=== PATIENT | male | born 1980 | race African-American/Black ===

== ENCOUNTER 2025-08-23 17:24 | Emergency (ER) | payer MEDICAID, SELFPAY ==
--- OUTSIDE RECORDS SUMMARY | 2025-06-04 05:20 | XMS_ITS ---
Author Organization [facility] Address [address] [place] [address] Care Team Providers Care Assembler Crimper Name Role Phone Ana Llanos Primary Care Provider REASON FOR VISIT r/s from 04/30/25 4 week fu Social History Sex Assigned At : Social History Observation Description Sex Assigned At Male Encounters Encounter Location Date Provider Diagnosis [facility] [address], [place] [address] 06/04/2025 Ana Llanos Plan Of Treatment No Information Progress Notes * Randal HERNANDEZDOB: [birth year] (45 yo M)Acc No.[id number]:06/04/2025 UNLOCKED PROGRESS NOTE Patient: Randal VICENTE Provider: ARYAN Begum, EDUCATION FACULTY MEMBER, PMHNP-BC :1980 A ge:44 Y S ex:Male Date:06/04/2025 [facility] [facility] Structured Data:Is there a n shannan you would prefer we call you? (Nombre que prefiere usar) : No Subjective: * Chief Complaints: * 1 . R/s from 04/30/25 4 week fu. * Medical History: Objective: * Vitals: Assessment: Plan: * Treatment: * * Electronic signature of Acacia Llanos on 08/23/2025 at 08:25 PM SWITCH INSPECTOR Sign off status: Pending * Provider: Chrissy Llanos, MSN, EDUCATION FACULTY MEMBER, PMHNP-BC Date: 0 06/04/2025 Generated for Printing/Faxing/eTransmitting on: 1 10/23/2024 08:25 PM SWITCH INSPECTOR
--- OUTSIDE RECORDS SUMMARY | 2025-06-14 09:00 | XMS_ITS ---
Author Organization [facility] Address [address] [place] [address] Care Team Providers Care Equipment Records Supervisor Name Role Phone Ana Llanos Primary Care Provider Larry Calvo Unavailable [phone] REASON FOR VISIT 2 Week F/U Medications Medication SIG (Take, Route, Frequency, Duration) Notes Start Date End Date Status hydrOXYzine Pamoate 50 MG 1 capsule Orally 3 times a day; Duration: 30 days As needed for anxiety/insomnia Active traZODone HCl 50 MG 1 tablet at bedtime as needed Orally Once a day; Duration: 30 days Active Vivitrol 380 MG as directed Intramus cular every 28 days; Duration: 28 days 02/28/2025 Active Multi Vitamin - 1 tablet Orally Once a day; Duration: 30 days 05/21/2025 Active Melatonin 5 MG 1 tablet at bedtime as needed Orally Once a day; Duration: 30 days 05/21/2025 Active OLANZapine 10 MG 1 tablet at bedtime Orally Once a day; Duration: 30 days Active OLANZapine 5 MG 1 tablet in morning Orally Once a day; Duration: 30 days Active hydrOXYzine Pamoate 25 mg TAKE 1 CAPSULE BY MOUTH EVERY FOUR HOURS NEEDED FOR ANXIETY; Duration: 8 Active Docusate Sodium 100 MG 1 capsule as need ed Orally Once a day; Duration: 30 day(s) 05/31/2025 Active Cyclobenzaprine HCl 5 MG 1 tablet at bed time as needed Orally Once a day; Duration: 30 day(s) 05/31/2025 Active Social History Sex Assigned At : Social History Observation Description Sex Assigned At Male Encounters Encounter Location Date Provider Diagnosis [facility] [place] [address] 06/14/2025 Larry Calvo Plan Of Treatment No Information Progress Notes * Randal HERNANDEZDOB: [birth year] (45 yo M)Acc No.[id number]:06/14/2025 UNLOCKED PROGRESS NOTE Progress Notes Patient: Randal VICENTE Provider: Sadaf Calvo APN :1980 A ge:44 Y S ex:Male Date:06/14/2025 Address:[address] [place] [address] , [facility] Pcp:Ana Llanos Structured Data:Is there a n shannan you would prefer we call you? (Nombre que prefiere usar) : No Subjective: * Chief Complaints: * 1 . 2 Week F/U. * Medical History: * Medications: T aking Vivitrol 380 MG Suspension Reconstituted as directed Intramuscular every 28 days , Taking Multi Vitamin - Tablet 1 tablet Orally Once a day , Taking Melatonin 5 MG Tablet 1 tablet at bedtime as needed Orally Once a day , Taking hydrOXYzine Pamoate 25 mg Capsule TAKE 1 CAPSULE BY MOUTH EVERY FOUR HOURS NEEDED FOR ANXIETY , Taking Docusate Sodium 100 MG Capsule 1 capsule as needed Orally Once a day , Taking Cyclobenzaprine HCl 5 MG Tablet 1 tablet at bedtime as needed Orally Once a day , Taking OLANZapine 10 MG Tablet 1 tablet at bedtime Orally Once a day , Taking OLANZapine 5 MG Tablet 1 tablet in morning Orally Once a day , Taking hydrOXYzine Pamoate 50 MG Capsule 1 capsule Orally 3 times a day As needed for anxiety/insomnia, Taking traZODone HCl 50 MG Tablet 1 tablet at bedtime as needed Orally Once a day Objective: * Vitals: Assessment: Plan: * Treatment: * * Electronic signature of Alejandro Calvo on 08/23/2025 at 08:25 PM RETREAD TECHNICIAN Sign off status: Pending * Provider: Sadaf Calvo APN Date: 0 06/14/2025 Generated for Issac magana/Nimisha/Kelsi on: 10/23/2024 08:25 PM RETREAD TECHNICIAN
--- OUTSIDE RECORDS SUMMARY | 2025-06-27 09:40 | XMS_ITS ---
[facility] Organization [facility] Address [address] [place] [address] Care Team Providers Care Health Manager Name Role Phone Ana Llanos Primary Care Provider Sandie Vora [phone] REASON FOR VISIT wants vivitrol inj Social History Sex Assigned At : Social History Observation Description Sex Assigned At Male Encounters Encounter Location Date Provider Diagnosis [facility] [place] [address] 06/27/2025 Sandie Vora Plan Of Treatment No Information Progress Notes * Randal HERNANDEZDOB: [birth year] (45 yo M)Acc No.[id number]:06/27/2025 UNLOCKED PROGRESS NOTE Patient: Randal VICENTE Provider: Mehul Vora, MSN, POULTRY HATCHERY MAN, HEALTH ADVISOR-C :1980 A ge:44 Y S ex:Male Date:06/27/2025 Address[facility] [address] Pcp:Ana Llanos Structured Data:Is there a n shannan you would prefer we call you? (Nombre que prefiere usar) : No Subjective: * Chief Complaints: * 1 . Wants vivitrol inj. * Medical History: Objective: * Vitals: Assessment: Plan: * Treatment: * Care Plan Details* * Electronic signature of Mar Vora APRN, [id number] on 08/23/2025 at 08:26 PM YOUTH ACCOMMODATION SUPPORT WORKER Sign off status: Pending * Provider: Mehul Vora, MSN, POULTRY HATCHERY MAN, HEALTH ADVISOR-C Date: 1 Generated for Issac magana/Nimisha/Kelsi on: 10/23/2024 08:26 PM YOUTH ACCOMMODATION SUPPORT WORKER
[2025-08-23 17:31] VITALS: BP 126/89; PULSE 99; RESP 14; TEMP 36.8; O2SAT 100
--- NOTE | 2025-08-23 17:33 | ED_ITS ---
HPI - Alcohol General Chief Complaint: Alcohol <Jyoti Brambila APRN - Last Filed: 08/23/25 17:35> Stated Complaint: N/V <Jyoti Brambila APRN - Last Filed: 08/23/25 17:35> Time Seen by Provider: 08/23/25 17:33 <Jyoti Brambila APRN - Last Filed: 08/23/25 17:35> Focused HPI: Patient is a 45-year-old male who presents to the ER stating the police told me I could either come here or go to halfway.He reports he has been drinking alcohol today but is unsure what time he had his last drink. Patient reports he DOES NOT drink alcohol every day. He denies any loss of consciousness, headache, visual changes, shortness of breath or nausea/vomiting. Patient denies any medical history relevant to this ER visit. GENERAL: Ill-appearing, well-nourished, and in no acute distress. HEAD: Normocephalic, atraumatic. CHEST: Clear to auscultation. ?No respiratory distress. HEART: Regular rate and rhythm.? NEURO: ?Alert and oriented x3. Patient screened in triage and initial orders placed.? ?Additional care and disposition to be based upon?diagnostic testing and treatment. <Jyoti Brambila APRN - Last Filed: 08/23/25 17:35> History of Present Illness HPI narrative: Agree with HPI <Winnie Cesar MD - Last Filed: 08/23/25 20:24> Related Data Allergies/Adverse Reactions: Allergies Allergy/AdvReac Type Severity Reaction Status Date / Time No Known Allergies Allergy Verified 08/23/25 17:26 <Jyoti Brambila APRN - Last Filed: 08/23/25 17:35> Exam Narrative: EXAMINATION OF ORGAN SYSTEMS/BODY AREAS: Constitutional: Vital signs per nursing GENERAL:[No acute distress, does appear slightly intoxicated] HEAD: Normal with no signs of head trauma. EYES: EOMI, conjunctiva normal ENT: Hearing grossly intact LUNGS: Nonlabored breathing. HEART: [Regular rate and rhythm] ABD: [Soft], [nontender to palpation] EXT: Normal range of motion SKIN: [No rashes or lesions.] NEURO: [Alert and oriented x 3. Able to ambulate with steady gait.] PSYCH: Normal affect <Winnie Cesar MD - Last Filed: 08/23/25 20:24> Course Vital Signs Vital signs: Vital Signs Temperature 98.2 F 08/23/25 17:31 Pulse Rate 99 08/23/25 17:31 Respiratory Rate 14 08/23/25 17:31 Blood Pressure 126/89 08/23/25 17:31 Pulse Oximetry 100 08/23/25 17:31 Oxygen Delivery Room Air 08/23/25 17:31 Temperature 98.2 F 08/23/25 17:31 Pulse Rate 99 08/23/25 17:31 Respiratory Rate 14 08/23/25 17:31 Blood Pressure 126/89 08/23/25 17:31 Pulse Oximetry 100 08/23/25 17:31 Oxygen Delivery Room Air 08/23/25 17:31 <Jyoti Brambila APRN - Last Filed: 08/23/25 17:35> Vital Signs Temperature 98.2 F 08/23/25 17:31 Pulse Rate 99 08/23/25 17:31 Respiratory Rate 14 08/23/25 17:31 Blood Pressure 126/89 08/23/25 17:31 Pulse Oximetry 100 08/23/25 17:31 Oxygen Delivery Room Air 08/23/25 17:31 Temperature 98.2 F 08/23/25 17:31 Pulse Rate 99 08/23/25 17:31 Respiratory Rate 14 08/23/25 17:31 Blood Pressure 126/89 08/23/25 17:31 Pulse Oximetry 100 08/23/25 17:31 Oxygen Delivery Room Air 08/23/25 17:31 <Winnie Cesar MD - Last Filed: 08/23/25 20:24> MDM - Alcohol MDM Narrative Medical decision making narrative: Patient presents to the ER because he was found by police sleeping on the bench and intoxicated and they told him they were going to take him to halfway. Patient denies any complaints, he does not want to be here, he would like to call for a ride to go home. I feel is quite reasonable, he is ambulating steady gait, I do feel he can go home with a sober ride, he has no signs of trauma on him and he has normal vital signs and is denying any complaints. Instructed to stop drinking so much alcohol and to follow up with primary care doctor return for any further issues. <Winnie Cesar MD - Last Filed: 08/23/25 20:24> Discharge Plan Discharge Clinical Impression: Alcohol use disorder <Jyoti Brambila APRN - Last Filed: 08/23/25 17:35> Patient Disposition: Home <Jyoti Brambila APRN - Last Filed: 08/23/25 17:35> Condition: Stable <Jyoti Brambila APRN - Last Filed: 08/23/25 17:35> Instructions: Abuse of Alcohol (ED) <Jyoti Brambila APRN - Last Filed: 08/23/25 17:35> Additional Instructions: Please follow up with your doctor; please stop drinking so much alcohol. You can always return for any further issues. <Jyoti Brambila APRN - Last Filed: 08/23/25 17:35> Patient Language: Sami <Jyoti Brambila APRN - Last Filed: 08/23/25 17:35> Follow-up/Referrals: PHYSICIAN,MACHINE STOPPAGE FREQUENCY CHECKER [Primary Care Provider, Internal Medicine] Sergei Ruvalcaba MD [Physician, Family Practice] - 2 Days <Jyoti Brambila APRN - Last Filed: 08/23/25 17:35>
== END 2025-08-23 20:32 | disposition home or self-care (01) ==
PROVIDERS: Emergency Provider Emergency Medicine
DX: F10.129 Alcohol abuse with intoxication, unspecified (principal); Y90.9 Presence of alcohol in blood, level not specified
CPT/HCPCS: 99283

== ENCOUNTER 2025-08-24 19:27 | Emergency (ER) | payer MEDICAID, SELFPAY ==
--- OUTSIDE RECORDS SUMMARY | 2025-06-04 05:20 | XMS_ITS ---
Author Organization [facility] Address [address] [place] [address] Care Team Providers Care Flour Blender Helper Name Role Phone Ana Llanos Primary Care Provider [phone] REASON FOR VISIT r/s from 04/30/25 4 week fu Social History Sex Assigned At : Social History Observation Description Sex Assigned At Male Encounters Encounter Location Date Provider Diagnosis [facility] [address], [place] [address] 06/04/2025 Ana Llanos Plan Of Treatment No Information Progress Notes * Randal HERNANDEZDOB: [birth year] (45 yo M)Acc No.[id number]:06/04/2025 UNLOCKED PROGRESS NOTE Patient: Randal VICENTE Provider: ARYAN Begum, GREY GOODS MARKER, PMHNP-BC :1980 A ge:44 Y S ex:Male Date:06/04/2025 [facility] [facility] Structured Data:Is there a n shannan you would prefer we call you? (Nombre que prefiere usar) : No Subjective: * Chief Complaints: * 1 . R/s from 04/30/25 4 week fu. * Medical History: Objective: * Vitals: Assessment: Plan: * Treatment: * * Electronic signature of Acacia Llanos on 08/24/2025 at 07:55 PM NEWS DIRECTOR Sign off status: Pending * Provider: Chrissy Llanos, MSN, GREY GOODS MARKER, PMHNP-BC Date: 0 06/04/2025 Generated for Printing/Faxing/eTransmitting on: 1 10/24/2024 07:55 PM NEWS DIRECTOR
--- OUTSIDE RECORDS SUMMARY | 2025-06-14 09:00 | XMS_ITS ---
Author Organization [facility] Address [address] [place] [address] Care Team Providers Care Assistant Manager Pt Name Role Phone Ana Llanos Primary Care Provider [phone] Larry Calvo Unavailable [phone] REASON FOR VISIT 2 Week F/U Medications [...] Male Encounters Encounter Location Date Provider Diagnosis [facility] [place] [address] 06/14/2025 Larry Calvo Plan Of Treatment No Information Progress Notes * Randal HERNANDEZDOB: [birth year] (45 yo M)Acc No.[id number]:06/14/2025 UNLOCKED PROGRESS NOTE Progress Notes Patient: Randal VICENTE Provider: Sadaf Calvo APN :1980 A ge:44 Y S ex:Male Date:06/14/2025 Address:[address] [place] [address] , [facility] Pcp:Ana Llanos Structured Data:Is there a [...] * Electronic signature of Alejandro Calvo on 08/24/2025 at 07:55 PM BUNDLE CUTTER Sign off status: Pending * Provider: Sadaf Calvo APN Date: 06/14/2025 Generated for Issac magana/Nimisha/Kelsi on: 10/24/2024 07:55 PM BUNDLE CUTTER
--- OUTSIDE RECORDS SUMMARY | 2025-06-27 09:40 | XMS_ITS ---
Author Organization [facility] Address [address] [place] [address] Care Team Providers Care Nursing Home Administrator Name Role Phone Ana Llanos Primary Care Provider Sandie Vora [phone] REASON FOR VISIT wants vivitrol inj Social History Sex Assigned At : Social History Observation Description Sex Assigned At Male Encounters Encounter Location Date Provider Diagnosis [facility] [place] [address] 06/27/2025 Sandie Vora Plan Of Treatment No Information Progress Notes * Randal HERNANDEZDOB: [birth year] (45 yo M)Acc No.[id number]:06/27/2025 UNLOCKED PROGRESS NOTE Patient: Randal VICENTE Provider: Mehul Vora, MSN, FOUNDATION ENGINEER, STORE CLERK CHECKER-C :1980 A ge:44 Y S ex:Male Date:06/27/2025 Address: [facility] Pcp:Ana Llanos Structured Data:Is there a n shannan you would prefer we call you? (Nombre que prefiere usar) : No Subjective: * Chief Complaints: * 1 . Wants vivitrol inj. * Medical History: Objective: * Vitals: Assessment: Plan: * Treatment: * Care Plan Details* * Electronic signature of Mar Vora APRN, [id number] on 08/24/2025 at 07:55 PM TRAILER DRIVER Sign off status: Pending * Provider: Mehul Vora, MSN, FOUNDATION ENGINEER, STORE CLERK CHECKER-C Date: 1 Generated for Issac magana/Nimisha/Kelsi on: 10/24/2024 07:55 PM TRAILER DRIVER
--- NOTE | ~2025-08-24 | CT_ITS ---
CT HEAD NON-CONTRAST CT C-SPINE Clinical History: unwitnessed fall, ETOH, abrasion to face Comparison: None Technique: Unenhanced axial images skull base to vertex. Coronal, sagittal reformats. Axial images thoracic inlet to skull base. Sagittal and coronal reformats. CT images acquired with automatic exposure control for dose reduction DLP: 681 mGy-cm Findings: Head: Sulci, ventricles: Unremarkable. No intracerebral hemorrhage. No evidence acute territorial infarct. No mass effect, midline shift, intra-/extra-axial fluid collection. Bony calvarium intact. Visualized paranasal sinuses: Clear. Mastoid air cells: Clear. C-spine: No acute fracture or listhesis. Straightening of normal cervical lordosis. Mild degenerative changes. Disc spaces maintained. Prevertebral soft tissues within normal limits. Visualized lung apices: Emphysema. Nodular opacity left apex, at least 10 mm but incompletely imaged. Visualized thyroid: Unremarkable. No enlarged cervical nodes. IMPRESSION: HEAD: 1. No acute intracranial findings. C-SPINE: 1. No acute fracture. 2. Left upper lobe pulmonary nodule. Recommend CT chest. Based on size, further characterization indicated. Reviewed, dictated and finalized at location R. UMER SAFETY INSPECTOR IMPRESSION: HEAD: 1. No acute intracranial findings. C-SPINE: 1. No acute fracture. 2. Left upper lobe pulmonary nodule. Recommend CT chest. Based on size, furthe r characterization indicated.
--- NOTE | ~2025-08-24 | XR_ITS ---
Examination: XR hip RT min 2V Clinical History: fall/pain Comparison: None Technique: 2 views right hip Findings/impression: 1. No fracture or dislocation right hip. Reviewed, dictated and finalized at location R. IFOCAL BUTTON INSPECTOR
[2025-08-24 19:36] VITALS: BP 126/76; PULSE 78; RESP 20; TEMP 37.3; O2SAT 93
--- NOTE | 2025-08-24 19:40 | ED_ITS ---
HPI - Alcohol General Chief Complaint: Alcohol Stated Complaint: Found on sidewalk, +ETOH Time Seen by Provider: 08/24/25 19:28 History of Present Illness HPI narrative: Patient with history of alcohol use disorder presents here after being found on the sidewalk, he admits to drinking alcohol today. Brought here by EMS. Denies any complaints. Related Data Allergies Allergy/AdvReac Type Severity Reaction Status Date / Time No Known Allergies Allergy Verified 08/23/25 17:26 Review of Systems Review of Systems: All systems reviewed & are unremarkable except as noted in HPI and below Exam Narrative: EXAMINATION OF ORGAN SYSTEMS/BODY AREAS: Constitutional: Vital signs per nursing GENERAL:[No acute distress, slight slurred speech and smells of alcohol.] HEAD: Normal with no signs of head trauma. EYES: EOMI, conjunctiva normal ENT: Hearing grossly intact LUNGS: Nonlabored breathing. HEART: [Regular rate and rhythm] ABD: [Soft], [nontender to palpation] EXT: Normal range of motion SKIN: Tiny cut L eyelid NEURO: [Alert. No gross focal sensory or strength deficits other than slight slurred speech, appears intoxicated, slightly staggering gait.] PSYCH: Normal affect Course Vital Signs Vital signs: Vital Signs Temperature 99.2 F 08/24/25 19:36 Pulse Rate 78 08/24/25 19:36 Respiratory Rate 20 08/24/25 19:36 Blood Pressure 126/76 08/24/25 19:36 Pulse Oximetry 93 08/24/25 19:36 Oxygen Delivery Room Air 08/24/25 19:36 Temperature 99.2 F 08/24/25 19:36 Pulse Rate 78 08/24/25 19:36 Respiratory Rate 20 08/24/25 19:36 Blood Pressure 126/76 08/24/25 19:36 Pulse Oximetry 93 08/24/25 19:36 Oxygen Delivery Room Air 08/24/25 19:36 MDM - Alcohol MDM Narrative Medical decision making narrative: Patient with a history of alcohol use disorder presents here with acute alcohol intoxication. No focal lateralizing neurological deficits although limited exam due to intoxication, will re-evaluate after sobriety. Unknown last time patient was seen normal. No complaints at this time, admits to alcohol use, and has a physical exam consistent with alcohol intoxication. CBG acceptable range. Vitals stable. He does have a tiny abrasion to his left eyelid so I did obtain CT head and C-spine to rule out trauma. Negative. The patient will be observed until clinical sobriety was achieved as evidenced by clear speech and steady gait, or until he can find a sober ride home. Lab Data Labs: Lab Results 08/24/25 Range/Units 20:01 POC Capillary Glucose 102 (65-105) mg/dl Discharge Plan Discharge Clinical Impression: Alcoholic intoxication Patient Disposition: Home Condition: Stable Instructions: Abuse of Alcohol (ED) Additional Instructions: Please stop drinking so much alcohol. You can always return to the ER for any further issues. Patient Language: Sierra Leonean Follow-up/Referrals: PHYSICIAN,CASE MANAGEMENT SPECIALIST [Primary Care Provider, Internal Medicine]
--- OUTSIDE RECORDS SUMMARY | 2025-08-24 19:55 | XMS_ITS | Patient Health Record ---
Author Organization [facility] Address [address] [place] [address] Care Team Providers Care Back Up Worker Name Role Phone Ana Llanos Primary Care Provider [phone] Sandie Vora Unavailable [phone] Shayne Og Unavailable [phone] Sophie Hartman Unavailable [phone] Alea Cesar Unavailable [phone] Sandor Fernandez Unavailable [phone] Alvina Bourgeois Unavailable [phone] Aishwarya Reid Unavailable [phone] Larry Calvo Unavailable [phone] Sophie Lester Unavailable [phone] Allergies No Known Allergies Results Component Value Reference Range Notes 14 Panel Urine Drug Screen Reviewed date:06/28/2025 03:10:06 PM Interpretation: Performing Lab: Notes/Report: THC neg SOCORRO neg MOP (OPI) neg AMP neg MET neg BAR neg BZO neg MDMA neg MTD neg OXY neg PCP neg BUP neg TCA neg FTY neg Breathalyzer Reviewed date:05/22/2025 08:21:06 AM Interpretation: Performing Lab: Notes/Report: GIRMA 0.000 QuantiFERON-TB Gold Plus ([id number]) Reviewed date:05/23/2025 10:29:08 AM Interpretation: Performing Lab:[facility], [address] [facility], Phone - [phone], Director - Tariq Notes/Report: QuantiFERON Incubation Incubation performed. QuantiFERON-TB Gold Plus Negative Negative No response to M tuberculosis antigens detected. Infection with M tuberculosis is unlikely, but high risk individuals should be considered for additional testing (ATS/IDSA/CDC Clinical Practice Guidelines, 2017). The reference range is an Antigen minus Nil result of <0.35 IU/mL. Chemiluminescence immunoassay methodology QuantiFERON Criteria QuantiFERON-TB Gold Plus is a qualitative indirect test for M tuberculosis infection (including disease) and is intended for use in conjunction with risk assessment, radiography, and other medical and diagnostic evaluations. The QuantiFERON-TB Gold Plus result is determined by subtracting the Nil value from either TB antigen (Ag) value. The Mitogen tube serves as a control for the test. QuantiFERON TB1 Ag Value 0.13 QuantiFERON TB2 Ag Value 0.08 QuantiFERON Nil Value 0.13 QuantiFERON Mitogen Value >10.00 Specimen Status Report TNP Test not performed. No serum gel received. TEST: [id number] Comp. Metabolic Panel (14) CMP 14 Comprehensive Metabol ic Panel* Reviewed date:05/23/2025 10:29:08 AM Interpretation: Performing Lab:[facility] [place], [address] [facility], Phone - [phone], Director - [facility] Notes/Report: Glucose TNP Test not perfor med. No serum gel received. BUN TNP Test not perfor med Creatinine TNP Test not perfor med Sodium TNP Test not perfor med Potassium TNP Test not perfor med Chloride TNP Test not perfor med Carbon Dioxide, Total TNP Test n ot performed Calcium TNP Test not perfor med Protein, Total TNP Test not perf ormed Albumin TNP Test not perfor med Bilirubin, Total TNP Test not pe rformed Alkaline Phosphatase TNP Test no t performed AST (SGOT) TNP Test not perfor med ALT (SGPT) TNP Test not perfor med CBC With Differential/Platel et* Reviewed date:05/23/2025 10:29:08 AM Interpretation: Performing Lab:[facility] [place], [address] [facility], [place], Phone - [phone], Director - [facility] Notes/Report: WBC TNP Test not perfor med. No lavender top tube submitted. RBC TNP Test not perfor med Hemoglobin TNP Test not perfor med Hematocrit TNP Test not perfor med Platelets TNP Test not perfor med Neutrophils TNP Test not perfor med Lymphs TNP Test not perfor med Monocytes TNP Test not perfor med Eos TNP Test not perfor med Lymphs (Absolute) TNP Test not p erformed Eos (Absolute) TNP Test not perf ormed Baso (Absolute) TNP Test not per formed 14 Panel Urine Drug Screen Reviewed date:05/22/2025 08:21:06 AM Interpretation: Performing Lab: Notes/Report: THC neg SOCORRO neg MOP (OPI) neg AMP neg MET neg BAR neg BZO pos MDMA neg MTD neg OXY neg PCP neg BUP neg TCA pos FTY neg 14 Panel Urine Drug Screen Reviewed date:03/28/2025 09:42:54 AM Interpretation: Performing Lab: Notes/Report: THC neg SOCORRO neg MOP (OPI) neg AMP neg MET neg BAR neg BZO neg MDMA neg MTD neg OXY neg PCP neg BUP neg TCA neg FTY neg 14 Panel Urine Drug Screen Reviewed date:04/29/2025 01:36:50 PM Interpretation: Performing Lab: Notes/Report: THC neg SOCORRO neg MOP (OPI) neg AMP neg MET neg BAR neg BZO neg MDMA neg MTD neg OXY neg PCP neg BUP neg TCA neg FTY neg Hemoglobin A1c CLIA Waived Reviewed date:05/31/2025 09:17:54 AM Interpretation: Performing Lab: Notes/Report: Hemoglobin A1c 6.1 4.0 - 6.4 % TSH+Free T4 Reviewed date:06/11/2025 01:25:08 PM Interpretation: Performing Lab:[facility] [address] [facility], Phone - [phone], [facility] Notes/Report: TSH-ICMA 0.71 Reference Range: Non- Adult 0.450-4.500 Free T4 by [facility] 0.96 This test was developed and its performance characteristics determined by [facility]. It has not been cleared or approved by the Food and Drug Administration. Reference Range: Pubertal Children and Adults: 0.8 - 1.7 Lipid Panel With LDL/HDL Rat io Reviewed date:06/11/2025 01:25:08 PM Interpretation: Performing Lab:[facility] [place] [address] [facility], Phone - [phone], [facility] Notes/Report: Cholesterol, Total 229 100-199 mg/dL Triglycerides 89 0-149 mg/dL HDL Cholesterol 75 >39 mg/dL VLDL Cholesterol Feng 15 5-40 mg/dL LDL Chol Calc (NIH) 139 0-99 mg/dL LDL/HDL Ratio 1.9 0.0-3.6 ratio LDL/HDL Ratio Men Women 1/2 Avg.Risk 1.0 1.5 Avg.Risk 3.6 3.2 2X Avg.Risk 6.2 5.0 3X Avg.Risk 8.0 6.1 Breathalyzer Reviewed date:02/26/2025 10:48:29 AM Interpretation: Performing Lab: Notes/Report: GIRMA 0.014 QuantiFERON-TB Gold Plus ([id number]) Reviewed date:03/07/2025 01:21:17 PM Interpretation:Normal Performing Lab:[facility] [place], [address] [facility], Phone - [phone], Director - PhDGloria Notes/Report: QuantiFERON Incubation Incubation performed. QuantiFERON-TB Gold Plus Negative Negative No response to M tuberculosis antigens detected. Infection with M tuberculosis is unlikely, but high risk individuals should be considered for additional testing (ATS/IDSA/CDC Clinical Practice Guidelines, 2017). The reference range is an Antigen minus Nil result of <0.35 IU/mL. Chemiluminescence immunoassay methodology QuantiFERON Criteria QuantiFERON-TB Gold Plus is a qualitative indirect test for M tuberculosis infection (including disease) and is intended for use in conjunction with risk assessment, radiography, and other medical and diagnostic evaluations. The QuantiFERON-TB Gold Plus result is determined by subtracting the Nil value from either TB antigen (Ag) value. The Mitogen tube serves as a control for the test. QuantiFERON TB1 Ag Value 0.03 QuantiFERON TB2 Ag Value 0.04 QuantiFERON Nil Value 0.03 QuantiFERON Mitogen Value 4.83 12 Panel Urine Drug Screen Reviewed date:02/26/2025 10:49:14 AM Interpretation: Performing Lab: Notes/Report: THC POS SOCORRO neg MOP (OPI) neg AMP neg MET neg BAR neg BZO neg MDMA neg MTD neg OXY neg PCP neg BUP neg CMP 14 Comprehensive Metabol ic Panel* Reviewed date:03/07/2025 01:21:17 PM Interpretation:Abnormal Performing Lab:[facility] [place], [address] [facility], [place], Phone - [phone], Director - Tariq Notes/Report: Glucose 97 70-99 mg/dL BUN 11 6-24 mg/dL Creatinine 0.91 0.76-1.27 mg/dL eGFR 108 >59 mL/min/1.73 BUN/Creatinine Ratio 12 9-20 Sodium 141 134-144 mmol/L Potassium 5.1 3.5-5.2 mmol/L Chloride 103 96-106 mmol/L Carbon Dioxide, Total 21 20-29 mmol/L Calcium 10.1 8.7-10.2 mg/dL Protein, Total 7.1 6.0-8.5 g/dL Albumin 4.6 4.1-5.1 g/dL Globulin, Total 2.5 1.5-4.5 g/dL Bilirubin, Total 0.2 0.0-1.2 mg/dL Alkaline Phosphatase 167 44-121 IU/L AST (SGOT) 37 0-40 IU/L ALT (SGPT) 53 0-44 IU/L CBC With Differential/Platel et* Reviewed date:03/07/2025 01:21:17 PM Interpretation:Abnormal Performing Lab:[facility] [place], [address] [facility], Phone - [phone], Director - Tariq Notes/Report: WBC 5.7 3.4-10.8 x10E3/uL RBC 4.78 4.14-5.80 x10E6/uL Hemoglobin 14.8 13.0-17.7 g/dL Hematocrit 46.8 37.5-51.0 % MCV 98 79-97 fL MCH 31.0 26.6-33.0 pg MCHC 31.6 31.5-35.7 g/dL RDW 13.5 11.6-15.4 % Platelets 323 150-450 x10E3/uL Neutrophils 44 Not Estab. % Lymphs 36 Not Estab. % Monocytes 16 Not Estab. % Eos 3 Not Estab. % Basos 1 Not Estab. % Neutrophils (Absolute) 2.6 1.4-7.0 x10E3/uL Lymphs (Absolute) 2.1 0.7-3.1 x10E3/uL Monocytes(Absolute) 0.9 0.1-0.9 x10E3/uL Eos (Absolute) 0.2 0.0-0.4 x10E3/uL Baso (Absolute) 0.0 0.0-0.2 x10E3/uL Immature Granulocytes 0 Not Estab. % Immature Grans (Abs) 0.0 0.0-0.1 x10E3/uL Reason For Referral No Information Medications Medication SIG (Take, Route, Frequency, Duration) Notes Start Date End Date Status OLANZapine 5 MG 1 tablet in morning Orally Once a day; Duration: 30 days Active hydrOXYzine Pamoate 50 MG 1 capsule Orally 3 times a day; Duration: 30 days As needed for anxiety/insomnia Active traZODone HCl 50 MG 1 tablet at bedtime as needed Orally Once a day; Duration: 30 days Active hydrOXYzine Pamoate 50 MG 1 capsule Oral ly 3 times a day; Duration: 7 days Active traZODone HCl 50 MG 1 tablet at bedtime as needed Orally Once a day; Duration: 7 days Active OLANZapine 10 MG 1 tablet at bedtime Orally Once a day; Duration: 30 days Active Melatonin 5 MG 1 tablet at bedtime as needed Orally Once a day; Duration: 30 days 05/21/2025 Active hydrOXYzine Pamoate 25 mg TAKE 1 CAPSULE BY MOUTH EVERY FOUR HOURSNEEDED FOR ANXIETY; Duration: 8 days Active Docusate Sodium 100 MG 1 capsule as need ed Orally Once a day; Duration: 30 day(s) 05/31/2025 Active Cyclobenzaprine HCl 5 MG 1 tablet at bed time as needed Orally Once a day; Duration: 30 day(s) 05/31/2025 Active OLANZapine 10 MG 1 tablet at bedtime Orally Once a day; Duration: 7 days Active Vivitrol 380 MG as directed Intramus cular every 28 days 02/28/2025 Active Multi Vitamin - 1 tablet Orally Once a day; Duration: 30 days 05/21/2025 Active Social History Tobacco Use: Social History Observation Description Date Details (start date - stop date) Former Smoker NA - NA Sex Assigned At : Social History Observation Description Sex Assigned At Male PRAPARE Question Answer Notes Date Completed/Updated: 05/21/2025 What is your current housing situation? I do not have housing (staying with others, in a hotel, in a longterm, living outside on the street, on a beach, or in a park) Are you worried about losing your housing? Yes What is the highest level of school that you have finished? High school diploma or GED What is your current work situation? Unemployed and seeking work In the past year, have you o r any family members you live with been unable to get any of the following when it was really needed? Check all that apply Food,Utilities Has lack of transportation k ept you from medical appointments, meetings, work or from getting things needed for daily living? Yes, it has kept me from non-medical meetings, appointments, work, or getting things needed for daily living How often do you see or talk to people that you care about and feel close to? (For example: talking to friends on the phone, visiting friends or family, going to yazidi or club meetings) More than 5 times a week How stressed are you? Stress is when someone feels tense, nervous, anxious, or can\t sleep at night because their mind is troubled Very much In the past year have you sp ent more than 2 nights in a row in a detention, penitentiary, skilled nursing center, or juvenile correctional facility? No Are you a refugee? I choose not to answer this q uestion What country are you from? I choose not to answe r this question Do you feel physically and e motionally safe where you currently live? No In the past year, have you b een afraid of your partner or ex-partner? No PRAPARE Score: 13 Enabling Services Provided? Yes Please specify Case Management Follow-up Tobacco Control (Standard) Question Answer Notes Tobacco use: Former smoker Section Notes: Occupation: Works at [employer] Alcohol use: Abstinent for about seven months Occupation: Works at [employer] Alcohol use: Abstinent for about seven months Occupation: Works at [employer] Alcohol use: Abstinent for about seven months Problems Problem Type SNOMED Code ICD Code Onset Dates Problem Status W/U Status Risk Notes Problem Information temporarily unavailable Nicotine dependence, unspecified, uncomplicated (F17.200) Active confirmed Problem Information temporarily unavailable Hypertension (I10) Active confirmed Problem Information temporarily unavailable Insomnia (G47.00) Active confirmed Problem Information temporarily unavailable Mood disorder (F39) Active confirmed The differential diagnosis includes but is not limited to: Drug induced psychosis vs Bipolar 2 Problem Information temporarily unavailable HARJEET (generalized anxiety disorder) (F41.1) Active confirmed Problem Information temporarily unavailable Left hip pain (M25.552) Active confirmed Problem Information temporarily unavailable Constipation (K59.00) Active confirmed Problem Information temporarily unavailable MDD (major depressive disorder) (F32.9) Active confirmed Problem Information temporarily unavailable Alcohol use disorder (F10.99) Active confirmed Problem Information temporarily unavailable Mental health disorder (F99) Active confirmed Problem Information temporarily unavailable Adult general medical examination (Z00.00) Active confirmed Problem Information temporarily unavailable Muscle spasm of left lower extremity (M62.838) Active confirmed Problem Information temporarily unavailable Alcohol abuse, daily use (F10.10) Active confirmed Vital Signs Heart Rate 83 /min 06/28/2025 Temperature 98.0 degrees Fahrenheit 06/28/2025 Respiratory Rate 18 /min 06/28/2025 Oximetry 98 % 06/28/2025 Blood pressure diastolic 78 mm Hg 06/28/2025 Height 72 in 06/28/2025 Blood pressure systolic 122 mm Hg 06/28/2025 Weight 177.2 lbs 06/28/2025 BMI 24.03 kg/m2 06/28/2025 Encounters Encounter Location Date Provider Diagnosis [address] [address] 09/05/2024 Ana Viet Nicotine dependence, unspecified, uncomplicated F17.200 ; MDD (major depressive disorder) F32.9 and HARJEET (generalized anxiety disorder) F41.[address] [address] 10/08/2024 Ana Viet MDD (major depressive disorder) F32.9 and HARJEET (generalized anxiety disorder) F41.[address] [address] 12/27/2024 Ana Viet MDD (major depressive disorder) F32.9 and HARJEET (generalized anxiety disorder) F41.1 [place] [address] [place] [address] 02/26/2025 Sophie Hartman Routine physical examination Z00.00 [place] [address] [place] [address] 02/26/2025 Aishwarya Reid MDD (major depressive disorder) F32.9 and Alcohol abuse, daily use F10.[address] [address] 02/27/2025 Ana Viet Mood disorder F39 ; Insomnia G47.00 ; HARJEET (generalized anxiety disorder) F41.1 ; Alcohol abuse, daily use F10.10 and Therapeutic drug monitoring Z51.81 [facility] [address] [place] [address] 02/28/2025 Sandie Vora Alcohol use disorder F10.99 [facility] [address] [address] 03/06/2025 Ana Viet Insomnia G47.00 ; Mood disorder F39 ; HARJEET (generalized anxiety disorder) F41.1 and Alcohol abuse, daily use F10.10 [facility] [address] [place] [address] 03/26/2025 Ana Viet Insomnia G47.00 ; Mood disorder F39 and HARJEET (generalized anxiety disorder) F41.1 [place] [address] [place] [address] 03/28/2025 Alea Tanwangco Alcohol use disorder F10.99 and Nicotine dependence, unspecified, uncomplicated F17.200 [place] [address] [place] [address] 04/29/2025 Alea Tanwangco Alcohol use disorder F10.99 and Nicotine dependence, unspecified, uncomplicated F17.200 [facility] [place] [address] 05/21/2025 Larry Calvo Adult general medical examination Z00.00 ; Hypertension I10 and Left hip pain M25.552 [facility] [place] [address] 05/21/2025 Sophie Lester Mental health disorder F99 [place] [address] [place] [address] 05/29/2025 Sandie Vora Alcohol use disorder F10.99 [facility] [place] [address] 05/31/2025 Larry Calvo Adult general medical examination Z00.00 ; Thyroid disorder screening Z13.29 ; Encounter for screening for lipid disorder Z13.220 ; Diabetes mellitus screening Z13.1 ; Constipation K59.00 ; Muscle spasm of left lower extremity M62.838 and Pre-diabetes R73.09 [facility] [address] [address] 06/06/2025 Ana Viet Mood disorder F39 ; HARJEET (generalized anxiety disorder) F41.1 and Insomnia G47.00 [facility] [address] [place] [address] 06/28/2025 Sandie Vora Alcohol use disorder F10.99 [facility] [address] [address] 07/08/2025 Ana Viet Mood disorder F39 ; HARJEET (generalized anxiety disorder) F41.1 and Insomnia G47.00 [facility] [address] [address] 08/12/2025 Ana Viet Mood disorder F39 ; HARJEET (generalized anxiety disorder) F41.1 and Insomnia G47.00 [facility] [address] [address] 08/28/2024 Ana Viet [facility] [address] [address] 09/04/2024 Ana Viet [facility] [address] [address] 09/05/2024 Ana Viet MDD (major depressive disorder) F32.[address] [place] [address] 10/02/2024 Ana Viet [facility] [address] [address] 10/03/2024 Alvina Bourgeois [facility] [address] [address] 10/03/2024 Ana Viet [facility] [address] [address] 10/08/2024 Ana Viet MDD (major depressive disorder) F32.[address] [place] [address] 03/05/2025 Ana Viet [address] [address] 03/06/2025 Sophie Hartman Routine physical examination Z00.[address] [address] 03/18/2025 Sophie Hartman [address] [address] 04/23/2025 Ana Viet Mood disorder F39 and HARJEET (generalized anxiety disorder) F41.[address] [place] [address] 04/29/2025 Shayne Og Alcohol use disorder F10.99 [place] [address] [place] [address] 05/28/2025 Sandie Vora [place] [address] [place] [address] 05/29/2025 Sandie Vora Alcohol use disorder F10.[address] [address] 06/06/2025 Ana Llanos [place] [address] [place] [address] 06/27/2025 Sandie Vora Alcohol use disorder F10.[address] [place] [address] 07/05/2025 Ana Viet Adult general medical examination Z00.00 ; Mood disorder F39 ; HARJEET (generalized anxiety disorder) F41.1 and Insomnia G47.[address] [place] [address] 07/26/2025 Ana Viet Mood disorder F39 and Insomnia G47.00 Assessments Encounter Date Diagnosis (ICD Code) Assessment Notes Treatment Notes Treatment Clinical Notes Section Notes 09/05/2024 Nicotine dependence, unspecified, uncomplicated (ICD-10 - F17.200) 09/05/2024 MDD (major depressive disorder) (ICD-10 - F32.9) CancelRx Response got Denied on 2024-10-08 14:07:12 for 'OLANZapine 20 MG Tablet'Pharmacy Notes: Prescription not found. Contact Pharmacy by other means 10/08/2024 MDD (major depressive disorder) (ICD-10 - F32.9) 12/27/2024 MDD (major depressive disorder) (ICD-10 - F32.9) 02/26/2025 Routine physical examination (ICD-10 - Z00.00) Admit to the Mental Health/Crisis Residential Unit and initiate standing/protocol orders: The following PRN medications may be self-administered by patients under the supervision of approved staff or administered by nursing staff: Ibuprofen 200mg, 2-4 tablets by mouth (with food) every 6 hours as needed for pain (unless on lithium). (NOTE: Ibuprofen and acetaminophen may be given together, but alternating is recommended for continuous pain relief. Guaifenesin 400 mg, 1 tablet by mouth every four hours as needed for cough and chest congestion (take with large glass of water). Loratadine 10 mg, 1 tablet by mouth daily as needed for allergies, watery itchy eyes, or sinus drainage. Throat Lozenges, up to 4 tablets by mouth every three to four hours as needed for sore throat. Antacid tablets, 1-2 tablets by mouth every one to two hours as needed for indigestion or heart burn. If the client prefers liquid, could use: Liquid Antacid : 1 ounce by mouth up to four times daily as needed for indigestion or heartburn Omeprazole 20mg, 1 capsule by mouth once daily for 14 days for frequent heartburn (frequent heartburn is more than 2 episodes per week). Do not exceed 14 days. Do not give to client already taking a proton-pump inhibitor: esomeprazole (Nexium), lansoprazole (Prevacid), pantoprazole (Protonix), rabeprazole (Aciphex), dexlansoprazole (Dexilant) Zofran ODT disintegrating (under the tongue) 4 mg, 1-2 tablets every 8 hours as needed for nausea/vomiting. Milk of Magnesia (MOM): 1 ounce (30 milliliters) by mouth every day as needed for constipation. OR Miralax: Stir and fully dissolve 17 grams (1 packet or 1 capful to measured line) in any 4 to 8 ounces of beverage then drink once daily for constipation. Do not use for more than 7 days. OR Docusate 100 mg, 1 capsule twice daily as needed for constipation Hydrocortisone 1% Cream, apply topically (to the skin) to the affected area up to three times daily as needed for itching or inflammation (avoid eyes and genitals). 2% Antifungal Cream, apply topically (to the skin) as directed as needed to affected areas for athlete's foot or jock itch. Triple Antibiotic Ointment, apply topically (to the skin) up to three times daily as needed for minor cuts and scrapes. Carmex or Chapstick, apply topically (to the skin) as needed for chapped lips and skin. Orajel, apply to affected areas as needed for mouth or tooth pain. Lubricating Eye Drops, instill 1-2 drops to the affected eye(s) as needed for dry/irritated eye(s). Hemorrhoid medications, apply to affected area according to directions as needed for hemorrhoid discomfort and itch. Nix (Permethrin 1%) cream 2 ounces, apply topically (to the skin) as directed as needed for head lice. Sunscreen 30 SPF, Apply to exposed skin prior to exposure to sun. The following PRN medications must be approved by nursing staff before self-administration by patients: Diphenhydramine 25 mg, 2 tablets by mouth every 4 hours as needed for allergic reaction or itchy rash. Caution: Do not use hydroxyzine within 4 hours of diphenhydramine and vice versa. Loperamide 2 mg capsules, may give two capsules by mouth for the initial dose, followed by one capsule up to 3 times a day as needed for diarrhea. Acetaminophen 500 mg, 1 - 2 tablets by mouth every six hours as needed for pain. (NOTE: Ibuprofen and acetaminophen may be given together, but alternating is recommended for continuous pain relief). Oxygen-May administer oxygen 2L/min via nasal cannula if O2 saturation is less than 92%, AND client complains of shortness of breath. Target O2 saturation is 94-98%. Caution: Remember too much oxygen can be detrimental to a client with COPD. Oxygen is a drug and should be delivered by trained staff only. Nurses may remove superficial splinters and sutures from skin lacerations. May apply gauze or bandages to any weeping wounds. Contact nursing if there is pus, a foul odor, increased pain/redness/swelli ng, or if soaking through bandages. 02/26/2025 MDD (major depressive disorder) (ICD-10 - F32.9) 02/27/2025 Insomnia (ICD-10 - G47.00) 02/27/2025 Mood disorder (ICD-10 - F39) The differential diagnosis includes but is not limited to: Drug induced psychosis vs Bipolar 2 10/08/2024 MDD (major depressive disorder) (ICD-10 - F32.9) Continue Olanzapine. Antidepressant education - reviewed side effects which may include increased risk of suicide, anxiety, sleep disturbance, nausea, dry mouth, increased bruising, sexual dysfunction, yesica, wt gain, and serotonin syndrome. Call for problems with medication, side effects or need for dosage change. 02/28/2025 Alcohol use disorder (ICD-10 - F10.99) 03/06/2025 Routine physical examination (ICD-10 - Z00.00) 03/06/2025 Insomnia (ICD-10 - G47.00) 03/28/2025 Nicotine dependence, unspecified, uncomplicated (ICD-10 - F17.200) 03/28/2025 Alcohol use disorder (ICD-10 - F10.99) 04/23/2025 Mood disorder (ICD-10 - F39) 04/29/2025 Alcohol use disorder (ICD-10 - F10.99) 04/29/2025 Nicotine dependence, unspecified, uncomplicated (ICD-10 - F17.200) 04/29/2025 Alcohol use disorder (ICD-10 - F10.99) 05/21/2025 Hypertension (ICD-10 - I10) Patient reports taking BP medication, but no evidence in the charts. Take BPs twice daily for the next 2 weeks, if BPs are rising, please make appt for him to return to be further evaluated 05/21/2025 Adult general medical examination (ICD-10 - Z00.00) Admit to the [facility] and initiate standing/protocol orders: The following PRN medications may be self-administered by patients under the supervision of approved staff or administered by nursing staff: Ibuprofen 200mg, 2-4 tablets by mouth (with food) every 6 hours as needed for pain (unless on lithium). (NOTE: Ibuprofen and acetaminophen may be given together, but alternating is recommended for continuous pain relief. Guaifenesin 400 mg, 1 tablet by mouth every four hours as needed for cough and chest congestion (take with large glass of water). Loratadine 10 mg, 1 tablet by mouth daily as needed for allergies, watery itchy eyes, or sinus drainage. Throat Lozenges, up to 4 tablets by mouth every three to four hours as needed for sore throat. Antacid tablets, 1-2 tablets by mouth every one to two hours as needed for indigestion or heart burn. If the client prefers liquid, could use: Liquid Antacid : 1 ounce by mouth up to four times daily as needed for indigestion or heartburn Omeprazole 20mg, 1 capsule by mouth once daily for 14 days for frequent heartburn (frequent heartburn is more than 2 episodes per week). Do not exceed 14 days. Do not give to client already taking a proton-pump inhibitor: esomeprazole (Nexium), lansoprazole (Prevacid), pantoprazole (Protonix), rabeprazole (Aciphex), dexlansoprazole (Dexilant) Zofran ODT disintegrating (under the tongue) 4 mg, 1-2 tablets every 8 hours as needed for nausea/vomiting. Milk of Magnesia (MOM): 1 ounce (30 milliliters) by mouth every day as needed for constipation. OR Miralax: Stir and fully dissolve 17 grams (1 packet or 1 capful to measured line) in any 4 to 8 ounces of beverage then drink once daily for constipation. Do not use for more than 7 days. OR Docusate 100 mg, 1 capsule twice daily as needed for constipation Hydrocortisone 1% Cream, apply topically (to the skin) to the affected area up to three times daily as needed for itching or inflammation (avoid eyes and genitals). 2% Antifungal Cream, apply topically (to the skin) as directed as needed to affected areas for athlete's foot or jock itch. Triple Antibiotic Ointment, apply topically (to the skin) up to three times daily as needed for minor cuts and scrapes. Carmex or Chapstick, apply topically (to the skin) as needed for chapped lips and skin. Orajel, apply to affected areas as needed for mouth or tooth pain. Lubricating Eye Drops, instill 1-2 drops to the affected eye(s) as needed for dry/irritated eye(s). Hemorrhoid medications, apply to affected area according to directions as needed for hemorrhoid discomfort and itch. Nix (Permethrin 1%) cream 2 ounces, apply topically (to the skin) as directed as needed for head lice. Sunscreen 30 SPF, Apply to exposed skin prior to exposure to sun. The following PRN medications must be approved by nursing staff before self-administration by patients: Diphenhydramine 25 mg, 2 tablets by mouth every 4 hours as needed for allergic reaction or itchy rash. Caution: Do not use hydroxyzine within 4 hours of diphenhydramine and vice versa. Loperamide 2 mg capsules, may give two capsules by mouth for the initial dose, followed by one capsule up to 3 times a day as needed for diarrhea. Acetaminophen 500 mg, 1 - 2 tablets by mouth every six hours as needed for pain. (NOTE: Ibuprofen and acetaminophen may be given together, but alternating is recommended for continuous pain relief). Oxygen-May administer oxygen 2L/min via nasal cannula if O2 saturation is less than 92%, AND client complains of shortness of breath. Target O2 saturation is 94-98%. Caution: Remember too much oxygen can be detrimental to a client with COPD. Oxygen is a drug and should be delivered by trained staff only. Nurses may remove superficial splinters and sutures from skin lacerations. May apply gauze or bandages to any weeping wounds. Contact nursing if there is pus, a foul odor, increased pain/redness/swelli ng, or if soaking through bandages. 05/21/2025 Mental health disorder (ICD-10 - F99) 05/29/2025 Alcohol use disorder (ICD-10 - F10.99) 05/29/2025 Alcohol use disorder (ICD-10 - F10.99) 05/31/2025 Thyroid disorder screening (ICD-10 - Z13.29) 03/26/2025 Insomnia (ICD-10 - G47.00) 05/31/2025 Adult general medical examination (ICD-10 - Z00.00) - Discussed healthy diet. Encouraged patient to aim for a goal of 150 minutes of moderate-intensity exercise and 2 days of strength training. Educated them on the importance of starting small and building on their successes. - Discussed healthier eating habits including frequent meals which are carb/protein balanced. Discussed avoidance of simple carbohydrates, encouraged portion-controlled complex carbohydrates. - Recommended increasing water intake and avoiding sugary beverages, excess caffeine and alcohol intake - Patient denies any concerns with her plan of care. People verbalizes understanding and agrees to plan of care. 06/06/2025 Mood disorder (ICD-10 - F39) 06/06/2025 HARJEET (generalized anxiety disorder) (ICD-10 - F41.1) 06/27/2025 Alcohol use disorder (ICD-10 - F10.99) 06/28/2025 Alcohol use disorder (ICD-10 - F10.99) Patient reports abstinence from alcohol for about seven months. Ongoing recovery supported by attendance at meetings. Continued employment provides structure and routine. - Continue Vivitrol injection as scheduled. 07/05/2025 Adult general medical examination (ICD-10 - Z00.00) 07/08/2025 Mood disorder (ICD-10 - F39) 07/08/2025 HARJEET (generalized anxiety disorder) (ICD-10 - F41.1) 07/26/2025 Mood disorder (ICD-10 - F39) 08/12/2025 Mood disorder (ICD-10 - F39) 08/12/2025 HARJEET (generalized anxiety disorder) (ICD-10 - F41.1) 07/26/2025 Insomnia (ICD-10 - G47.00) 07/08/2025 Insomnia (ICD-10 - G47.00) 07/05/2025 Mood disorder (ICD-10 - F39) 05/31/2025 Encounter for screening for lipid disorder (ICD-10 - Z13.220) 06/06/2025 Insomnia (ICD-10 - G47.00) 03/26/2025 Mood disorder (ICD-10 - F39) The differential diagnosis includes but is not limited to: Drug induced psychosis vs Bipolar 2 05/21/2025 Left hip pain (ICD-10 - M25.552) Allow patient to take rests as needed for L hip pain. Can still attend group. 04/23/2025 HARJEET (generalized anxiety disorder) (ICD-10 - F41.1) 03/06/2025 Mood disorder (ICD-10 - F39) The differential diagnosis includes but is not limited to: Drug induced psychosis vs Bipolar 2 12/27/2024 HARJEET (generalized anxiety disorder) (ICD-10 - F41.1) 09/05/2024 MDD (major depressive disorder) (ICD-10 - F32.9) Continue Olanzapine. Antidepressant education - reviewed side effects which may include increased risk of suicide, anxiety, sleep disturbance, nausea, dry mouth, increased bruising, sexual dysfunction, yesica, wt gain, and serotonin syndrome. Call for problems with medication, side effects or need for dosage change. 02/27/2025 HARJEET (generalized anxiety disorder) (ICD-10 - F41.1) 02/26/2025 Alcohol abuse, daily use (ICD-10 - F10.10) 10/08/2024 HARJEET (generalized anxiety disorder) (ICD-10 - F41.1) 09/05/2024 HARJEET (generalized anxiety disorder) (ICD-10 - F41.1) 02/27/2025 Alcohol abuse, daily use (ICD-10 - F10.10) 03/06/2025 HARJEET (generalized anxiety disorder) (ICD-10 - F41.1) 03/26/2025 HARJEET (generalized anxiety disorder) (ICD-10 - F41.1) 05/31/2025 Diabetes mellitus screening (ICD-10 - Z13.1) 07/05/2025 HARJEET (generalized anxiety disorder) (ICD-10 - F41.1) 08/12/2025 Insomnia (ICD-10 - G47.00) 05/31/2025 Constipation (ICD-10 - K59.00) Encouraged the patient to increase fluid and fiber intake. Encouraged patient to eat one yogurt daily to help with BMs. 07/05/2025 Insomnia (ICD-10 - G47.00) 03/06/2025 Alcohol abuse, daily use (ICD-10 - F10.10) 02/27/2025 Therapeutic drug monitoring (ICD-10 - Z51.81) 05/31/2025 Muscle spasm of left lower extremity (ICD-10 - M62.838) 05/31/2025 Pre-diabetes (ICD-10 - R73.09) Educated patient on proper diet and avoiding sugary drinks/food. 09/05/2024 Other May self-administer medications or be administered own oral medications per [facility] protocols. Provided informed consent with understanding of side effects, adverse effects, risks and benefits as well as alternative treatments as previously discussed and with the above recommended medications & other aspects of the treatment program. Agrees to return sooner if symptoms worsen or suicidal or homicidal ideations occur. Unable to complete AIMS due to nature of appt, denies any irregular muscle movements; would benefit from an in person appointment. Plan: -Continue Olanzapine 20 mg QHS -Follow up: 4 weeks [] Hard Rx handed to patient [] Rx phoned into pharmacy [x] Rx faxed/e-prescribed into pharmacy [x] PDMP Reviewed [] [facility] Reviewed Encouraged by Ana MENDEZP- to: [x] consider utilizing therapist/counselor /addiction social worker/psychologist , referral given [] continue with therapist/counselor /addiction social worker/psychologist Psychoeducation: -Treatment options discussed in detail with patient/guardian verbalizing understanding of treatment rationales. -Side effects and benefits of all medications prescribed discussed at length between psychiatric prescribing provider and patient/guardian along with the risks associated of [id number] interactions, including but not limited to prescription medications, OTC medications, vitamins, minerals and herbal supplements. -Patient/Guardian and provider dialogue showcased verbalized understanding from patient on rationales of medication risk vs benefits. 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 -Reduction of stress and anxiety to aid in focus and concentration discussed, again, with patient/guardian physically nodding, voicing understanding, and engaged in treatment plan with Ana MEJIA-BC. -Perceiving complete understanding of rationale by patient/guardian and willingness to adhere to formulated plan of care by prescriber with patient/guardian buy-in, willingness to participate actively in plan of care and willing to take charge of own care. -Although geared for female patients, all patients/guardians are informed by prescribing provider of risks of medications that could potentially be taken by female/women within their [place] of influence and that women who use medicine during have a higher chance of having a baby with defects. -Patient/Guardian denies being and/or knowing of women who are at present and denies wanting to become in the foreseeable future, 0-6 months from now. -Patient/Guardian again informed of the risk of pharmaceutical medications consumed during and how there are potential negative effects on the developing fetus. -Patient/Guardian verbalizes understanding of rationale and physically nods head in agreement that if a should occur, to consult with provider, CORN CUTTER and/or Nurse Preassembler And Inspector to determine if prescribed medications should or should not be continued. -Instructions regarding both the medical/pharmacolog ical and non-pharmacologic aspects of the treatments employed were given, and the patient/guardian seemed to understand this. Risks and benefits of treatment, and of non-treatment, were also discussed. The patient/guardian understands the more frequent side effects associated with the medications. -The use of psychotherapy was addressed today and will continue on an as needed basis for the foreseeable future. The choice is, of course, ultimately left to the patient/guardian. -Patient/Guardian was encouraged to make a follow-up appointment for the next visit. -Additional treatment was discussed and has been addressed on an ongoing basis within the context of this patient's illness, resources, progress, and other appropriate factors. Being compliant with a regular exercise routine, consistent medication use, ongoing psychotherapy, eating and sleeping well, as well as the importance of handling stress, was discussed. 10/08/2024 Other May self-administer medications or be administered own oral medications per [facility] protocols. Provided informed consent with understanding of side effects, adverse effects, risks and benefits as well as alternative treatments as previously discussed and with the above recommended medications & other aspects of the treatment program. Agrees to return sooner if symptoms worsen or suicidal or homicidal ideations occur. Unable to complete AIMS due to nature of appt, denies any irregular muscle movements; would benefit from an in person appointment. Plan: -Continue Olanzapine 20 mg QHS *[facility] to [facility]er [facility] from previous pharmacy ([facility]). He will find out what pharmacy they require him to use and call for a refill. One month refill of Olanzapine 20 mg QHS approved. -Follow up: 4 weeks [] Hard Rx handed to patient [] Rx phoned into pharmacy [] Rx faxed/e-prescribed into pharmacy [x] PDMP Reviewed [] [facility]Sight Reviewed Encouraged by Ana Llanos [facility] to: [x] consider utilizing therapist/counselor /addiction social worker/psychologist [] continue with therapist/counselor /addiction social worker/psychologist Psychoeducation: -Treatment options discussed in detail with patient/guardian verbalizing understanding of treatment rationales. -Side effects and benefits of all medications prescribed discussed at length between psychiatric prescribing provider and patient/guardian along with the risks associated of [id number] interactions, including but not limited to prescription medications, OTC medications, vitamins, minerals and herbal supplements. -Patient/Guardian and provider dialogue showcased verbalized understanding from patient on rationales of medication risk vs benefits. 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 -Reduction of stress and anxiety to aid in focus and concentration discussed, again, with patient/guardian physically nodding, voicing understanding, and engaged in treatment plan with Ana Llanos [facility]. -Perceiving complete understanding of rationale by patient/guardian and willingness to adhere to formulated plan of care by prescriber with patient/guardian buy-in, willingness to participate actively in plan of care and willing to take charge of own care. -Although geared for female patients, all patients/guardians are informed by prescribing provider of risks of medications that could potentially be taken by female/women within their [place] of influence and that women who use medicine during have a higher chance of having a baby with defects. -Patient/Guardian denies being and/or knowing of women who are at present and denies wanting to become in the foreseeable future, 0-6 months from now. -Patient/Guardian again informed of the risk of pharmaceutical medications consumed during and how there are potential negative effects on the developing fetus. -Patient/Guardian verbalizes understanding of rationale and physically nods head in agreement that if a should occur, to consult with provider, CORN CUTTER and/or Nurse Preassembler And Inspector to determine if prescribed medications should or should not be continued. -Instructions regarding both the medical/pharmacolog ical and non-pharmacologic aspects of the treatments employed were given, and the patient/guardian seemed to understand this. Risks and benefits of treatment, and of non-treatment, were also discussed. The patient/guardian understands the more frequent side effects associated with the medications. -The use of psychotherapy was addressed today and will continue on an as needed basis for the foreseeable future. The choice is, of course, ultimately left to the patient/guardian. -Patient/Guardian was encouraged to make a follow-up appointment for the next visit. -Additional treatment was discussed and has been addressed on an ongoing basis within the context of this patient's illness, resources, progress, and other appropriate factors. Being compliant with a regular exercise routine, consistent medication use, ongoing psychotherapy, eating and sleeping well, as well as the importance of handling stress, was discussed. 12/27/2024 Other May self-administer medications or be administered own oral medications per [facility] protocols. Provided informed consent with understanding of side effects, adverse effects, risks and benefits as well as alternative treatments as previously discussed and with the above recommended medications & other aspects of the treatment program. Agrees to return sooner if symptoms worsen or suicidal or homicidal ideations occur. Plan: -Restart Olanzapine 10 mg QHS -Follow up: 1 week [] Hard Rx handed to patient [] Rx phoned into pharmacy [x] Rx faxed/e-prescribed into pharmacy [] PDMP Reviewed [] [employer]Sight Reviewed Encouraged by Ana Llanos [facility] to: [x] consider utilizing therapist/counselor /addiction social worker/psychologist , referral given [] continue with therapist/counselor /addiction social worker/psychologist Psychoeducation: -Treatment options discussed in detail with patient/guardian verbalizing understanding of treatment rationales. -Side effects and benefits of all medications prescribed discussed at length between psychiatric prescribing provider and patient/guardian along with the risks associated of [id number]-ztfw interactions, including but not limited to prescription medications, OTC medications, vitamins, minerals and herbal supplements. -Patient/Guardian and provider dialogue showcased verbalized understanding from patient on rationales of medication risk vs benefits. 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 -Reduction of stress and anxiety to aid in focus and concentration discussed, again, with patient/guardian physically nodding, voicing understanding, and engaged in treatment plan with Ana Lalnos [facility]. -Perceiving complete understanding of rationale by patient/guardian and willingness to adhere to formulated plan of care by prescriber with patient/guardian buy-in, willingness to participate actively in plan of care and willing to take charge of own care. -Although geared for female patients, all patients/guardians are informed by prescribing provider of risks of medications that could potentially be taken by female/women within their [place] of influence and that women who use medicine during have a higher chance of having a baby with defects. -Patient/Guardian denies being and/or knowing of women who are at present and denies wanting to become in the foreseeable future, 0-6 months from now. -Patient/Guardian again informed of the risk of pharmaceutical medications consumed during and how there are potential negative effects on the developing fetus. -Patient/Guardian verbalizes understanding of rationale and physically nods head in agreement that if a should occur, to consult with provider, CORN CUTTER and/or Nurse Preassembler And Inspector to determine if prescribed medications should or should not be continued. -Instructions regarding both the medical/pharmacolog ical and non-pharmacologic aspects of the treatments employed were given, and the patient/guardian seemed to understand this. Risks and benefits of treatment, and of non-treatment, were also discussed. The patient/guardian understands the more frequent side effects associated with the medications. -The use of psychotherapy was addressed today and will continue on an as needed basis for the foreseeable future. The choice is, of course, ultimately left to the patient/guardian. -Patient/Guardian was encouraged to make a follow-up appointment for the next visit. -Additional treatment was discussed and has been addressed on an ongoing basis within the context of this patient's illness, resources, progress, and other appropriate factors. Being compliant with a regular exercise routine, consistent medication use, ongoing psychotherapy, eating and sleeping well, as well as the importance of handling stress, was discussed. 02/26/2025 Other Clinician met w ith client to assess needs for residential services. Clinician gathered information regarding historical presentation of mental health and substance use symptoms including withdrawal, HIV Risk assessment, psychiatric hospitalization history and presenting concern. Clinician conducted PHQ9 and CSSRS assessments as well as social drivers of health screening for the purposes of identifying additional service needs. 02/27/2025 Other May self-administer medications or be administered own oral medications per [facility] protocols. Provided informed consent with understanding of side effects, adverse effects, risks and benefits as well as alternative treatments as previously discussed and with the above recommended medications & other aspects of the treatment program. Agrees to return sooner if symptoms worsen or suicidal or homicidal ideations occur. Medication Hx: -pt unable to remember past medications Plan: -Continue Olanzapine 10 mg QHS -Start Olanzapine 5 mg in AM -Start Hydroxyzine Pamoate 25 mg 1-2 capsules TID PRN *ordered Olanzapine Serum, A1C & LP *pt needs to be seen in person by 07/2025 -Follow up: 1 week [] Hard Rx handed to patient [] Rx phoned into pharmacy [x] Rx faxed/e-prescribed into pharmacy [x] PDMP Reviewed [] [facility]Sight Reviewed Encouraged by Ana FITZPATRICKP-BC to: [] consider utilizing therapist/counselor /addiction social worker/psychologist , referral given [x] continue with therapist/counselor /addiction social worker/psychologist Psychoeducation: -Treatment options discussed in detail with patient/guardian verbalizing understanding of treatment rationales. -Side effects and benefits of all medications prescribed discussed at length between psychiatric prescribing provider and patient/guardian along with the risks associated of [id number]-vk-nrbm interactions, including but not limited to prescription medications, OTC medications, vitamins, minerals and herbal supplements. -Patient/Guardian and provider dialogue showcased verbalized understanding from patient on rationales of medication risk vs benefits. 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 -Reduction of stress and anxiety to aid in focus and concentration discussed, again, with patient/guardian physically nodding, voicing understanding, and engaged in treatment plan with Ana FITZPATRICKP-BC. -Perceiving complete understanding of rationale by patient/guardian and willingness to adhere to formulated plan of care by prescriber with patient/guardian buy-in, willingness to participate actively in plan of care and willing to take charge of own care. -Although geared for female patients, all patients/guardians are informed by prescribing provider of risks of medications that could potentially be taken by female/women within their [place] of influence and that women who use medicine during have a higher chance of having a baby with defects. -Patient/Guardian denies being and/or knowing of women who are at present and denies wanting to become in the foreseeable future, 0-6 months from now. -Patient/Guardian again informed of the risk of pharmaceutical medications consumed during and how there are potential negative effects on the developing fetus. -Patient/Guardian verbalizes understanding of rationale and physically nods head in agreement that if a should occur, to consult with provider, CORN CUTTER and/or Nurse Preassembler And Inspector to determine if prescribed medications should or should not be continued. -Instructions regarding both the medical/pharmacolog ical and non-pharmacologic aspects of the treatments employed were given, and the patient/guardian seemed to understand this. Risks and benefits of treatment, and of non-treatment, were also discussed. The patient/guardian understands the more frequent side effects associated with the medications. -The use of psychotherapy was addressed today and will continue on an as needed basis for the foreseeable future. The choice is, of course, ultimately left to the patient/guardian. -Patient/Guardian was encouraged to make a follow-up appointment for the next visit. -Additional treatment was discussed and has been addressed on an ongoing basis within the context of this patient's illness, resources, progress, and other appropriate factors. Being compliant with a regular exercise routine, consistent medication use, ongoing psychotherapy, eating and sleeping well, as well as the importance of handling stress, was discussed. 02/28/2025 Other DATE 02/28/25 TIME,0857 D Allison Daley.N. > Per Mehul Vora APRN's orders, supervised as pt. self-administered Naltrexone 25mg po. Instructed pt. on Naltrexone and Vivitrol per [employer] module handout. Instructed pt. on adverse side effects to report and common side effects. Gave pt. Vivitrol ID bracelet, necklace, and wallet card and explained what/why it is used. Pt. verbalized understanding of all of the above. Will monitor. DATE 02/28/25 [id number] , D Allison > Pt. denies any adverse side effects from the Naltrexone at this time. Will continue to monitor. DATE 02/28/[id number] , NURSE> Pt. continues to deny any adverse side effects to the Naltrexone at this time. Reported this to ESTELLE Vora. Per orders, okay to administer IM Vivitrol. DATE 02/28/25 TIME 0940 D Allison > Administered Vivitrol 380mg IM into Lt. gluteus. Pt. tolerated well. No questions/concerns at this time. Pt. given a reminder with walk-in clinic hours, phone numbers, and when pt.'s next Vivitrol is due. Pt. verbalized understanding. DATE 02/28/25 TIME, 0954 D Allison > Pt. denies any adverse side effects from Vivitrol injection given. Per PROVIDERESTELLE pt. discharged to [facility] 03/06/2025 Other May self-administer medications or be administered own oral medications per [facility] protocols. Provided informed consent with understanding of side effects, adverse effects, risks and benefits as well as alternative treatments as previously discussed and with the above recommended medications & other aspects of the treatment program. Agrees to return sooner if symptoms worsen or suicidal or homicidal ideations occur. Medication Hx: -pt unable to remember past medications Plan: -Continue Olanzapine 10 mg QHS -Continue Olanzapine 5 mg in AM -Continue Hydroxyzine Pamoate 25 mg 1-2 capsules TID PRN *labs ordered 02/2026, results pending *pt needs to be seen in person by 07/2025 -Follow up: 2 weeks [] Hard Rx handed to patient [] Rx phoned into pharmacy [x] Rx faxed/e-prescribed into pharmacy [] PDMP Reviewed [] [employer] Reviewed Encouraged by Ana Llanos PMHNP- to: [] consider utilizing therapist/counselor /addiction social worker/psychologist , referral given [x] continue with therapist/counselor /addiction social worker/psychologist Psychoeducation: -Treatment options discussed in detail with patient/guardian verbalizing understanding of treatment rationales. -Side effects and benefits of all medications prescribed discussed at length between psychiatric prescribing provider and patient/guardian along with the risks associated of hrzw-kz-ztje interactions, including but not limited to prescription medications, OTC medications, vitamins, minerals and herbal supplements. -Patient/Guardian and provider dialogue showcased verbalized understanding from patient on rationales of medication risk vs benefits. 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 -Reduction of stress and anxiety to aid in focus and concentration discussed, again, with patient/guardian physically nodding, voicing understanding, and engaged in treatment plan with Ana Llanos [facility]. -Perceiving complete understanding of rationale by patient/guardian and willingness to adhere to formulated plan of care by prescriber with patient/guardian buy-in, willingness to participate actively in plan of care and willing to take charge of own care. -Although geared for female patients, all patients/guardians are informed by prescribing provider of risks of medications that could potentially be taken by female/women within their [place] influence and that women who use medicine during have a higher chance of having a baby with defects. -Patient/Guardian denies being and/or knowing of women who are at present and denies wanting to become in the foreseeable future, 0-6 months from now. -Patient/Guardian again informed of the risk of pharmaceutical medications consumed during and how there are potential negative effects on the developing fetus. -Patient/Guardian verbalizes understanding of rationale and physically nods head in agreement that if a should occur, to consult with provider, CORN CUTTER and/or Nurse Preassembler And Inspector to determine if prescribed medications should or should not be continued. -Instructions regarding both the medical/pharmacolog ical and non-pharmacologic aspects of the treatments employed were given, and the patient/guardian seemed to understand this. Risks and benefits of treatment, and of non-treatment, were also discussed. The patient/guardian understands the more frequent side effects associated with the medications. -The use of psychotherapy was addressed today and will continue on an as needed basis for the foreseeable future. The choice is, of course, ultimately left to the patient/guardian. -Patient/Guardian was encouraged to make a follow-up appointment for the next visit. -Additional treatment was discussed and has been addressed on an ongoing basis within the context of this patient's illness, resources, progress, and other appropriate factors. Being compliant with a regular exercise routine, consistent medication use, ongoing psychotherapy, eating and sleeping well, as well as the importance of handling stress, was discussed. 03/26/2025 Other May self-administer medications or be administered own oral medications per [facility] protocols. Provided informed consent with understanding of side effects, adverse effects, risks and benefits as well as alternative treatments as previously discussed and with the above recommended medications & other aspects of the treatment program. Agrees to return sooner if symptoms worsen or suicidal or homicidal ideations occur. Unable to complete AIMS due to nature of appt, denies any irregular muscle movements; would benefit from an in person appointment. Medication Hx: -unable to remember past medications Plan: -Continue Olanzapine 10 mg QHS -Continue Olanzapine 5 mg in AM -Continue Hydroxyzine Pamoate 25 mg 1-2 capsules TID PRN -Follow up: 4 weeks [] Hard Rx handed to patient [] Rx phoned into pharmacy [x] Rx faxed/e-prescribed into pharmacy [] PDMP Reviewed [] [employer] Reviewed Encouraged by Ana FITZPATRICKP-BC to: [] consider utilizing therapist/counselor /addiction social worker/psychologist , referral given [x] continue with therapist/counselor /addiction social worker/psychologist Psychoeducation: -Treatment options discussed in detail with patient/guardian verbalizing understanding of treatment rationales. -Side effects and benefits of all medications prescribed discussed at length between psychiatric prescribing provider and patient/guardian along with the risks associated of exjd-qi-qwwz interactions, including but not limited to prescription medications, OTC medications, vitamins, minerals and herbal supplements. -Patient/Guardian and provider dialogue showcased verbalized understanding from patient on rationales of medication risk vs benefits. 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 -Reduction of stress and anxiety to aid in focus and concentration discussed, again, with patient/guardian physically nodding, voicing understanding, and engaged in treatment plan with Ana FITZPATRICKP-BC. -Perceiving complete understanding of rationale by patient/guardian and willingness to adhere to formulated plan of care by prescriber with patient/guardian buy-in, willingness to participate actively in plan of care and willing to take charge of own care. -Although geared for female patients, all patients/guardians are informed by prescribing provider of risks of medications that could potentially be taken by female/women within their [place] influence and that women who use medicine during have a higher chance of having a baby with defects. -Patient/Guardian denies being and/or knowing of women who are at present and denies wanting to become in the foreseeable future, 0-6 months from now. -Patient/Guardian again informed of the risk of pharmaceutical medications consumed during and how there are potential negative effects on the developing fetus. -Patient/Guardian verbalizes understanding of rationale and physically nods head in agreement that if a should occur, to consult with provider, CORN CUTTER and/or Nurse Preassembler And Inspector to determine if prescribed medications should or should not be continued. -Instructions regarding both the medical/pharmacolog ical and non-pharmacologic aspects of the treatments employed were given, and the patient/guardian seemed to understand this. Risks and benefits of treatment, and of non-treatment, were also discussed. The patient/guardian understands the more frequent side effects associated with the medications. -The use of psychotherapy was addressed today and will continue on an as needed basis for the foreseeable future. The choice is, of course, ultimately left to the patient/guardian. -Patient/Guardian was encouraged to make a follow-up appointment for the next visit. -Additional treatment was discussed and has been addressed on an ongoing basis within the context of this patient's illness, resources, progress, and other appropriate factors. Being compliant with a regular exercise routine, consistent medication use, ongoing psychotherapy, eating and sleeping well, as well as the importance of handling stress, was discussed. 03/28/2025 Other Discussed medication side effects, adverse effects, risks, benefits, as well as interactions. Encouraged non-use of opioids. Encouraged continued participation in recovery groups to help aide in sobriety. Patient provided with Vivitrol alert bracelet, necklace, and wallet card. Agrees to return in 28 days for next Vivitrol injection. Patient may contact office with questions or concerns. 04/29/2025 Other Discussed medication side effects, adverse effects, risks, benefits, as well as interactions. Encouraged non-use of opioids. Encouraged continued participation in recovery groups to help aide in sobriety. Patient provided with Vivitrol alert bracelet, necklace, and wallet card. Agrees to return in 28 days for next Vivitrol injection. Patient may contact office with questions or concerns. 05/21/2025 Other Continue treatment as recommended by [facility] staff. Encouraged patient to obtain routine medical care with patient's own primary care provider or establish as a patient at [facility] if no current primary care provider. 05/21/2025 Other Clinician met w ith client to assess needs for residential services. Clinician gathered information regarding historical presentation of mental health and substance use symptoms including withdrawal, HIV Risk assessment, psychiatric hospitalization history and presenting concern. Clinician conducted PHQ9 and CSSRS assessments as well as social drivers of health screening for the purposes of identifying additional service needs. 05/29/2025 Other Patient agrees to take medication as prescribed. Discussed medication side effects, adverse effects, risks, benefits, as well as interactions. Encouraged non-use of alcohol. Recommended participation in recovery groups and/or counseling services. May contact office with questions or concerns. 06/06/2025 Other May self-administer medications or be administered own oral medications per [facility] protocols. Provided informed consent with understanding of side effects, adverse effects, risks and benefits as well as alternative treatments as previously discussed and with the above recommended medications & other aspects of the treatment program. Agrees to return sooner if symptoms worsen or suicidal or homicidal ideations occur. Unable to complete AIMS due to nature of appt, denies any irregular muscle movements; would benefit from an in person appointment. Medication Hx: -unable to remember past medications Medication Plan: -Continue Olanzapine 10 mg QHS -Continue Olanzapine 5 mg in AM -Increase Hydroxyzine Pamoate to 50 mg TID PRN -Continue Trazodone 50 mg QHS -Follow up: 4 weeks [] Hard Rx handed to patient [] Rx phoned into pharmacy [x] Rx faxed/e-prescribed into pharmacy [] PDMP Reviewed [] [employer] Reviewed Encouraged by Ana Llanos PMHNP-BC to: [] consider utilizing therapist/counselor /addiction social worker/psychologist , referral given [] continue with therapist/counselor /addiction social worker/psychologist Psychoeducation: -Treatment options discussed in detail with patient/guardian verbalizing understanding of treatment rationales. -Side effects and benefits of all medications prescribed discussed at length between psychiatric prescribing provider and patient/guardian along with the risks associated of zjpq-ew-desz interactions, including but not limited to prescription medications, OTC medications, vitamins, minerals and herbal supplements. -Patient/Guardian and provider dialogue showcased verbalized understanding from patient on rationales of medication risk vs benefits. 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 -Reduction of stress and anxiety to aid in focus and concentration discussed, again, with patient/guardian physically nodding, voicing understanding, and engaged in treatment plan with Ana Llanos [facility]. -Perceiving complete understanding of rationale by patient/guardian and willingness to adhere to formulated plan of care by prescriber with patient/guardian buy-in, willingness to participate actively in plan of care and willing to take charge of own care. -Although geared for female patients, all patients/guardians are informed by prescribing provider of risks of medications that could potentially be taken by female/women within their [place] influence and that women who use medicine during have a higher chance of having a baby with defects. -Patient/Guardian denies being and/or knowing of women who are at present and denies wanting to become in the foreseeable future, 0-6 months from now. -Patient/Guardian again informed of the risk of pharmaceutical medications consumed during and how there are potential negative effects on the developing fetus. -Patient/Guardian verbalizes understanding of rationale and physically nods head in agreement that if a should occur, to consult with provider, CORN CUTTER and/or Nurse Preassembler And Inspector to determine if prescribed medications should or should not be continued. -Instructions regarding both the medical/pharmacolog ical and non-pharmacologic aspects of the treatments employed were given, and the patient/guardian seemed to understand this. Risks and benefits of treatment, and of non-treatment, were also discussed. The patient/guardian understands the more frequent side effects associated with the medications. -The use of psychotherapy was addressed today and will continue on an as needed basis for the foreseeable future. The choice is, of course, ultimately left to the patient/guardian. -Patient/Guardian was encouraged to make a follow-up appointment for the next visit. -Additional treatment was discussed and has been addressed on an ongoing basis within the context of this patient's illness, resources, progress, and other appropriate factors. Being compliant with a regular exercise routine, consistent medication use, ongoing psychotherapy, eating and sleeping well, as well as the importance of handling stress, was discussed. 06/28/2025 Other Patient agrees to take medication as prescribed. Discussed medication side effects, adverse effects, risks, benefits, as well as interactions. Encouraged non-use of alcohol. Recommended participation in recovery groups and/or counseling services. May contact office with questions or concerns. 07/08/2025 Other May self-administer medications or be administered own oral medications per [facility] protocols. Provided informed consent with understanding of side effects, adverse effects, risks and benefits as well as alternative treatments as previously discussed and with the above recommended medications & other aspects of the treatment program. Agrees to return sooner if symptoms worsen or suicidal or homicidal ideations occur. Unable to complete AIMS due to nature of appt, denies any irregular muscle movements; would benefit from an in person appointment. Medication Hx: -unable to remember past medications Medication Plan: -Continue Olanzapine 10 mg QHS -Continue Olanzapine 5 mg in AM -Continue Hydroxyzine Pamoate 50 mg TID PRN -Continue Trazodone 50 mg QHS -Follow up: 4 weeks [] Hard Rx handed to patient [] Rx phoned into pharmacy [x] Rx faxed/e-prescribed into pharmacy [] PDMP Reviewed [] [facility] Reviewed [facility]: [] consider utilizing therapist/counselor /addiction social worker/psychologist , referral given [] continue with therapist/counselor /addiction social worker/psychologist Psychoeducation: -Treatment options discussed in detail with patient/guardian verbalizing understanding of treatment rationales. -Side effects and benefits of all medications prescribed discussed at length between psychiatric prescribing provider and patient/guardian along with the risks associated of cvsp-sm-dosl interactions, including but not limited to prescription medications, OTC medications, vitamins, minerals and herbal supplements. -Patient/Guardian and provider dialogue showcased verbalized understanding from patient on rationales of medication risk vs benefits. 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 -Reduction of stress and anxiety to aid in focus and concentration discussed, again, with patient/guardian physically nodding, voicing understanding, and engaged in treatment plan with Ana Llanos [facility]. -Perceiving complete understanding of rationale by patient/guardian and willingness to adhere to formulated plan of care by prescriber with patient/guardian buy-in, willingness to participate actively in plan of care and willing to take charge of own care. -Although geared for female patients, all patients/guardians are informed by prescribing provider of risks of medications that could potentially be taken by female/women within their [place] influence and that women who use medicine during have a higher chance of having a baby with defects. -Patient/Guardian denies being and/or knowing of women who are at present and denies wanting to become in the foreseeable future, 0-6 months from now. -Patient/Guardian again informed of the risk of pharmaceutical medications consumed during and how there are potential negative effects on the developing fetus. -Patient/Guardian verbalizes understanding of rationale and physically nods head in agreement that if a should occur, to consult with provider, CORN CUTTER and/or Nurse Preassembler And Inspector to determine if prescribed medications should or should not be continued. -Instructions regarding both the medical/pharmacolog ical and non-pharmacologic aspects of the treatments employed were given, and the patient/guardian seemed to understand this. Risks and benefits of treatment, and of non-treatment, were also discussed. The patient/guardian understands the more frequent side effects associated with the medications. -The use of psychotherapy was addressed today and will continue on an as needed basis for the foreseeable future. The choice is, of course, ultimately left to the patient/guardian. -Patient/Guardian was encouraged to make a follow-up appointment for the next visit. -Additional treatment was discussed and has been addressed on an ongoing basis within the context of this patient's illness, resources, progress, and other appropriate factors. Being compliant with a regular exercise routine, consistent medication use, ongoing psychotherapy, eating and sleeping well, as well as the importance of handling stress, was discussed. 08/12/2025 Other May self-administer medications or be administered own oral medications per [facility] protocols. Provided informed consent with understanding of side effects, adverse effects, risks and benefits as well as alternative treatments as previously discussed and with the above recommended medications & other aspects of the treatment program. Agrees to return sooner if symptoms worsen or suicidal or homicidal ideations occur. Unable to complete AIMS due to nature of appt, denies any irregular muscle movements; would benefit from an in person appointment. Medication Hx: - unable to remember past medications Medication Plan: -Continue Olanzapine 10 mg QHS -Continue Olanzapine 5 mg in AM -Continue Hydroxyzine Pamoate 50 mg TID PRN -Continue Trazodone 50 mg QHS -Follow up: 4 weeks [] Hard Rx handed to patient [] Rx phoned into pharmacy [x] Rx faxed/e-prescribed into pharmacy [] PDMP Reviewed [] [employer] Reviewed Encouraged by Ana FITZPATRICKP-BC to: [] consider utilizing therapist/counselor /addiction social worker/psychologist , referral given [] continue with therapist/counselor /addiction social worker/psychologist Psychoeducation: -Treatment options discussed in detail with patient/guardian verbalizing understanding of treatment rationales. -Side effects and benefits of all medications prescribed discussed at length between psychiatric prescribing provider and patient/guardian along with the risks associated of hnkz-fl-unhg interactions, including but not limited to prescription medications, OTC medications, vitamins, minerals and herbal supplements. -Patient/Guardian and provider dialogue showcased verbalized understanding from patient on rationales of medication risk vs benefits. 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 -Reduction of stress and anxiety to aid in focus and concentration discussed, again, with patient/guardian physically nodding, voicing understanding, and engaged in treatment plan with Ana MEJIA-BC. -Perceiving complete understanding of rationale by patient/guardian and willingness to adhere to formulated plan of care by prescriber with patient/guardian buy-in, willingness to participate actively in plan of care and willing to take charge of own care. -Although geared for female patients, all patients/guardians are informed by prescribing provider of risks of medications that could potentially be taken by female/women within their [place] of influence and that women who use medicine during have a higher chance of having a baby with defects. -Patient/Guardian denies being and/or knowing of women who are at present and denies wanting to become in the foreseeable future, 0-6 months from now. -Patient/Guardian again informed of the risk of pharmaceutical medications consumed during and how there are potential negative effects on the developing fetus. -Patient/Guardian verbalizes understanding of rationale and physically nods head in agreement that if a should occur, to consult with provider, CORN CUTTER and/or Nurse Preassembler And Inspector to determine if prescribed medications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
[2025-08-24] MEDS: TETANUS,DIPHTHERIA,AC PERTUSSIS ADULT (0.5 ML) BOOSTRIX IM (20:02)
--- NOTE | 2025-08-24 21:02 | PC.NURSE ---
Pt verbally inappropriate to this RN, states i want to fuck you. casing in line feeder sangeeta
--- NOTE | 2025-08-24 21:03 | PC.NURSE ---
Pt sexually inappropriate towards this RN,state i want to fuck you. non morse intercept technician, MD Cesar and security made aware.
--- NOTE | 2025-08-24 23:55 | PC.NURSE ---
Pt provided with juice and sandwich.
[2025-08-25 02:12] VITALS: BP 128/98; PULSE 79; RESP 16; O2SAT 99
== END 2025-08-25 02:00 | disposition home or self-care (01) ==
PROVIDERS: Emergency Provider Emergency Medicine
DX: F10.129 Alcohol abuse with intoxication, unspecified (principal); Y90.9 Presence of alcohol in blood, level not specified; S00.212A Abrasion of left eyelid and periocular area, initial encounter; M25.551 Pain in right hip; Z23 Encounter for immunization; R91.1 Solitary pulmonary nodule
CPT/HCPCS: 70450; 72125; 73502; 82948; 90471; 90715; 99284